=== PATIENT | female | born 1980 | race Caucasian/White ===

== ENCOUNTER 2018-12-03 22:11 | Observation (INO) | payer OTHER ==
[2018-12-03 22:44] VITALS: RESP 20
[2018-12-03 23:31] LABS: BASO % 0.4 % (0.0-2.0); EOS # 0.3 K/uL (0.0-0.7); EOS % 3.2 % (0.0-4.0); HEMOGLOBIN 12.7 g/dL (11.0-16.0); LYMPH # 3.5 K/uL (1.0-4.3); LYMPH % 35.6 % (20.0-40.0); MEAN CELL VOLUME 83.8 fL (81.0-99.0); MEAN CORPUSCULAR HEMOGLOBIN 28.8 pg (27.0-31.0); MEAN CORPUSCULAR HGB CONC 34.4 g/dL (33.0-37.0); MEAN PLATELET VOLUME 7.5 fL (7.2-11.7); MONO # 0.5 K/uL (0.0-0.8); MONO % 5.1 % (0.0-10.0); NEUT # 5.4 K/uL (1.8-7.0); NEUT % 55.7 % (50.0-75.0); NRBC % 0.1 % (0.0-2.0); RBC 4.42 Mil/uL (3.80-5.20); RED CELL DISTRIBUTION WIDTH 13.4 % (11.5-14.5); WHITE BLOOD COUNT 9.7 K/uL (4.8-10.8)
[2018-12-03 23:48] LABS: ALB/GLOB RATIO 1.3 (1.0-2.1); ALBUMIN 4.4 g/dL (3.5-5.0); ALT/SGPT 28 U/L (9-52); AST/SGOT 33 U/L (14-36); BLOOD UREA NITROGEN 12 mg/dL (7-17); CALCIUM 9.2 mg/dl (8.6-10.4); GFR NON-AFRICAN AMERICAN > 60
[2018-12-03 23:57] LABS: B-TYPE NATRIURETIC PEPTIDE 18.6 pg/mL (0-450)
--- NOTE | 2018-12-04 00:50 | C.PDOC ---
History Of Present Illness 38 year old female sent in by Dr. Colindres for SOB and abnormal EKG. Patient states she has SOB intermittently that does not change with exertion. She reports recently returning from [place] 2 months ago. Denies chest pain, cough, fever, or known sick contact. Time Seen by Provider: 12/03/18 22:50 Chief Complaint (Nursing): Shortness Of Breath History Per: Patient History/Exam Limitations: no limitations Onset/Duration Of Symptoms: Hrs Current Symptoms Are (Timing): Still Present Current Respiratory Medications: See Home Med List Associated Symptoms: denies: Fever, Chest Pain, Other (Cough) Recent travel outside of the [place]: No Past Medical History Reviewed: Historical Data, Nursing Documentation, Vital Signs Vital Signs: Last Vital Signs Temp 98.2 F 12/03/18 22:38 Pulse 90 12/03/18 22:38 Resp 20 12/03/18 22:38 BP 120/78 12/03/18 22:38 Pulse Ox 95 12/03/18 22:38 Family History: States: Unknown Family Hx - Social History Hx Alcohol Use: No Hx Substance Use: No - Immunization History Hx Tetanus Toxoid Vaccination: No Hx Influenza Vaccination: No Hx Pneumococcal Vaccination: No Review Of Systems Constitutional: Negative for: Fever, Chills Cardiovascular: Negative for: Chest Pain Respiratory: Positive for: Shortness of Breath. Negative for: Cough Gastrointestinal: Negative for: Nausea, Vomiting Neurological: Negative for: Weakness, Numbness Physical Exam - Physical Exam Appears: Non-toxic Skin: Normal Color, Warm Head: Atraumatic, Normacephalic Eye(s): bilateral: Normal Inspection Oral Mucosa: Moist Neck: Normal, Supple Chest: Symmetrical, No Tenderness Cardiovascular: Rhythm Regular Respiratory: Normal Breath Sounds, No Rales, No Rhonchi, No Wheezing Gastrointestinal/Abdominal: Soft, No Tenderness Neurological/Psych: Oriented x3, Normal Speech ED Course And Treatment - Laboratory Results Result Diagrams: 12/03/18 23:28 12/03/18 23:28 Lab Results: D-Dimer, Quantitative < 200 ng/mlDDU (0-243) 12/03/18 23:28 Troponin I < 0.0120 ng/mL (0.00-0.120) 12/03/18 23:28 NT-Pro-B Natriuret Pep 18.6 pg/mL (0-450) 12/03/18 23:28 Total Bilirubin 0.3 mg/dL (0.2-1.3) 12/03/18 23:28 AST 33 U/L (14-36) 12/03/18 23:28 ALT 28 U/L (9-52) 12/03/18 23:28 Alkaline Phosphatase 87 U/L (38-126) 12/03/18 23:28 Total Protein 7.7 g/dL (6.3-8.3) 12/03/18 23:28 Albumin 4.4 g/dL (3.5-5.0) 12/03/18 23:28 Globulin 3.3 gm/dL (2.2-3.9) 12/03/18 23:28 Albumin/Globulin Ratio 1.3 (1.0-2.1) 12/03/18 23:28 ECG: Interpreted By Me, Viewed By Me ECG Rhythm: Sinus Rhythm ECG Interpretation: Normal Interpretation Of ECG: Normal axis, t wave inversions in 2 3 and avf, questionable lvh by voltage criteria. Rate From EC O2 Sat by Pulse Oximetry: 95 (Room air) Progress Note: Spoke with Dr. Colindres who accepted patient to his service. Disposition - Disposition Disposition Time: 00:10 Condition: STABLE - Clinical Impression Clinical Impression: Chest pain, Dyspnea - Scribe Statement The provider has reviewed the documentation as recorded by the Scribirene Turner All medical record entries made by the Erinibe were at my direction and personally dictated by me. I have reviewed the chart and agree that the record accurately reflects my personal performance of the history, physical exam, medical decision making, and the department course for this patient. I have also personally directed, reviewed, and agree with the discharge instructions and disposition.
[2018-12-04 01:16] LABS: SQUAMOUS EPITHIAL 7 /hpf (0-5); URINE BACTERIA FEW (<OCC)
[2018-12-04 01:23] LABS: URINE BILIRUBIN NEGATIVE (NEGATIVE); URINE BLOOD TRACE-INTACT (NEGATIVE); URINE CLARITY Hazy (Clear); URINE COLOR YELLOW (YELLOW); URINE GLUCOSE (UA) NEGATIVE (Normal)
[2018-12-04 01:24] LABS: PH,URINE 7.5 (5.0-8.0); URINE LEUKOCYTE ESTERASE NEGATIVE Leu/uL (Negative); URINE PROTEIN NEGATIVE (NEGATIVE); URINE UROBILINOGEN 0.2 mg/dL (0.2-1.0)
--- NOTE | 2018-12-04 04:16 | CP.PCM.HP ---
Present on Admission - Present on Admission Any Indicators Present on Admission: No Past Patient History - Past Social History Smoking Status: Never Smoked - PSYCHIATRIC Hx Substance Use: No - SURGICAL HISTORY Hx Surgeries: No Meds Allergies/Adverse Reactions: Allergies Allergy/AdvReac Type Severity Reaction Status Date / Time No Known Allergies Allergy Unverified 12/03/18 22:43 Results - Vital Signs Recent Vital Signs: Last Vital Signs Temp 98.5 F 12/04/18 01:50 Pulse 86 12/04/18 02:15 Resp 20 12/04/18 01:50 BP 112/74 12/04/18 01:50 Pulse Ox 96 12/04/18 01:50 - Labs Result Diagrams: 12/03/18 23:28 12/03/18 23:28 Labs: Laboratory Results - last 24 hr 12/03/18 12/03/18 12/03/18 23:28 23:28 23:28 WBC 9.7 RBC 4.42 Hgb 12.7 Hct 37.0 MCV 83.8 MCH 28.8 MCHC 34.4 RDW 13.4 Plt Count 309 MPV 7.5 Neut % (Auto) 55.7 Lymph % (Auto) 35.6 [place] % (Auto) 5.1 Eos % (Auto) 3.2 Baso % (Auto) 0.4 Neut # (Auto) 5.4 Lymph # (Auto) 3.5 [place] # (Auto) 0.5 Eos # (Auto) 0.3 Baso # (Auto) 0.0 D-Dimer, Quantitative < 200 Sodium 137 Potassium 4.1 Chloride 97 L Carbon Dioxide 31 H Anion Gap 14 BUN 12 Creatinine 0.7 Est GFR ( Amer) > 60 Est GFR (Non-Af Amer) > 60 Random Glucose 141 H Calcium 9.2 Total Bilirubin 0.3 AST 33 ALT 28 Alkaline Phosphatase 87 Troponin I < 0.0120 NT-Pro-B Natriuret Pep 18.6 Total Protein 7.7 Albumin 4.4 Globulin 3.3 Albumin/Globulin Ratio 1.3 Urine Color Urine Clarity Urine pH Ur Specific [place] Urine Protein Urine Glucose (UA) Urine Ketones Urine Blood Urine Nitrate Urine Bilirubin Urine Urobilinogen Ur Leukocyte Esterase Urine WBC (Auto) Urine RBC (Auto) Ur Squamous Epith Cells Urine Bacteria 12/04/18 00:25 WBC RBC Hgb Hct MCV MCH MCHC RDW Plt Count MPV Neut % (Auto) Lymph % (Auto) [place] % (Auto) Eos % (Auto) Baso % (Auto) Neut # (Auto) Lymph # (Auto) [place] # (Auto) Eos # (Auto) Baso # (Auto) D-Dimer, Quantitative Sodium Potassium Chloride Carbon Dioxide Anion Gap BUN Creatinine Est GFR ( Amer) Est GFR (Non-Af Amer) Random Glucose Calcium Total Bilirubin AST ALT Alkaline Phosphatase Troponin I NT-Pro-B Natriuret Pep Total Protein Albumin Globulin Albumin/Globulin Ratio Urine Color Yellow Urine Clarity Hazy Urine pH 7.5 Ur Specific [place] 1.015 Urine Protein Negative Urine Glucose (UA) Negative Urine Ketones Negative Urine Blood Trace-intact Urine Nitrate Negative Urine Bilirubin Negative Urine Urobilinogen 0.2 Ur Leukocyte Esterase Negative Urine WBC (Auto) 3 Urine RBC (Auto) 2 Ur Squamous Epith Cells 7 H Urine Bacteria Few H
[2018-12-04 06:44] LABS: CK-MB < 0.22 ng/mL (0.0-3.38)
--- NOTE | 2018-12-04 07:58 | RAD ---
Date of service: 12/03/2018 PROCEDURE: CHEST RADIOGRAPH, 1 VIEW HISTORY: chest pain COMPARISON: None available. FINDINGS: LUNGS: Clear. Shallow lung volumes PLEURA: No pneumothorax or pleural fluid seen. CARDIOVASCULAR: No aortic atherosclerotic calcification present. Probable top-normal heart size Pulmonary vasculature prominence attributed to crowding low lung volumes. OSSEOUS STRUCTURES: No significant abnormalities. VISUALIZED UPPER ABDOMEN: Normal. OTHER FINDINGS: None. IMPRESSION: Limited exam given shallow inspiration body habitus and portable technique. No acute cardiopulmonary pathology believed present. Clinical correlation follow-up recommended
[2018-12-04 08:20] VITALS: BP 119/73; PULSE 95; TEMP 98.1
[2018-12-04 11:56] LABS: CK-MB < 0.22 ng/mL (0.0-3.38)
[2018-12-04 12:45] VITALS: O2SAT 97
--- NOTE | 2018-12-04 16:11 | CP.PCM.PN ---
Subjective - Date & Time of Evaluation Date of Evaluation: 12/04/18 Time of Evaluation: 16:08 - Subjective Subjective: House doctor note Patient has decided to leave against medical advice. Patient is competent and understands the risks of leaving, including permanent disability, worsening of symptoms and/or , and has had an opportunity to ask questions about her condition. Patient accepts all risk and liability. Paper work filed. Attending notified by RN. The patient has been informed that she may return for care at any time and to follow up with PMD urgently. Objective - Vital Signs/Intake and Output Vital Signs (last 24 hours): Temp Pulse Resp BP Pulse Ox 98.1 F 95 H 20 119/73 97 12/04/18 08:19 12/04/18 08:19 12/04/18 08:19 12/04/18 08:19 12/04/18 12:00 Intake and Output: 12/04/18 12/04/18 06:59 18:59 Intake Total 120 Balance 120 - Medications Medications: Current Medications Aspirin (Aspirin Chewable) 81 mg PO DAILY [facility] Last Admin: 12/04/18 09:42 Dose: 81 mg Heparin Sodium (Porcine) (Heparin) 5,000 units SC Q8 [facility] Last Admin: 12/04/18 14:09 Dose: 5,000 units Pneumococcal Polyvalent Vaccine (Pneumovax 23 Vaccine) 0.5 ml IM .ONCE ONE Stop: 12/06/18 11:01 Rosuvastatin Calcium (Crestor) 5 mg PO HS [facility] - Labs Labs: 12/03/18 23:28 12/03/18 23:28
--- NOTE | 2018-12-04 16:46 | HP ---
CHIEF COMPLAINT: Chest pain and shortness of breath. HISTORY OF PRESENT ILLNESS: This is a 38-year-old [place] female morbidly obese with history of prior chest pain and cardiac history. The patient is a nonsmoker, non-ETOH user. She denies any history of diabetes, hypertension, hyperlipidemia, came in because of left precordial chest pain, dyspnea on exertion, orthopnea, and PND. The patient had an EKG done in my office, which was grossly abnormal and the patient was hospitalized. The patient has been traveling overseas and she stayed there 2 months. She denies any history of cough or sore throat. She denies any history of dizziness or vertigo. She denies any history of nausea or vomiting. She denies any history of polyuria, polydipsia, polyphagia. She denies any relation of pain with food. She denies any relation of pain with deep inspiration. There is no history of trauma or fall. No joint pain or hip pain. She denies any tingling, numbness, or paresthesia. CURRENT MEDICATIONS: None. PAST MEDICAL HISTORY: Unknown cardiac history. SOCIAL HISTORY: Nonsmoker, non-ETOH user. PHYSICAL EXAMINATION: GENERAL: A young female in no distress. VITAL SIGNS: Blood pressure 112/74, pulse 84, respiratory rate 20, temperature 98.5. SKIN: No rashes, no bruising, no purpura, no petechia, no ecchymosis. HEENT: Atraumatic, normocephalic. Negative pallor. Negative jaundice. Extraocular movements are intact. NECK: Supple. No JVD, no lymph node, no thyromegaly, no carotid bruits. CHEST: Chest wall bilateral symmetrical expansion. LUNGS: Clear. CARDIOVASCULAR SYSTEM: S1, S2, regular. ABDOMEN: Soft, nontender. Bowel sounds are positive. RECTAL AND PELVIC: Negative. EXTREMITIES: No clubbing, cyanosis, or edema. CENTRAL NERVOUS SYSTEM: Awake, alert, oriented x3. ASSESSMENT: 1. Chest pain, abnormal EKG, rule out coronary ischemia, rule out conduction disturbances, rule out heart block. 2. Morbid obesity. PLAN: Admit. Details orders are written. Seen and examined. Glen Colindres MD
--- NOTE | 2018-12-04 22:39 | CP.PCM.DIS ---
Provider - Provider Date of Admission: 12/04/18 00:08 Attending physician: Glen Colindres MD Consults: 12/04/18 08:00 Cardiology Consult Routine Comment: CHEST PAIN Consulting Provider: Emile Lopes Consulting Physician: Emile Lopes Reason for Consult: CHEST PAIN /EKG CHANGES Time Spent in preparation of Discharge (in minutes): 30 Hospital Course - Lab Results Lab Results: Most Recent Lab Values WBC 9.7 K/uL (4.8-10.8) 12/03/18: RBC 4.42 Mil/uL (3.80-5.20) 12/03/18: Hgb 12.7 g/dL (11.0-16.0) 12/03/18: Hct 37.0 % (34.0-47.0) 12/03/18: MCV 83.8 fL (81.0-99.0) 12/03/18: MCH 28.8 pg (27.0-31.0) 12/03/18: MCHC 34.4 g/dL (33.0-37.0) 12/03/18: RDW 13.4 % (11.5-14.5) 12/03/18: Plt Count 309 K/uL (130-400) 12/03/18: MPV 7.5 fL (7.2-11.7) 12/03/18: Neut % (Auto) 55.7 % (50.0-75.0) 12/03/18: Lymph % (Auto) 35.6 % (20.0-40.0) 12/03/18: [place] % (Auto) 5.1 % (0.0-10.0) 12/03/18: Eos % (Auto) 3.2 % (0.0-4.0) 12/03/18: Baso % (Auto) 0.4 % (0.0-2.0) 12/03/18: Neut # (Auto) 5.4 K/uL (1.8-7.0) 12/03/18: Lymph # (Auto) 3.5 K/uL (1.0-4.3) 04/15/19 23:28 [place] # (Auto) 0.5 K/uL (0.0-0.8) 12/03/18 23:28 Eos # (Auto) 0.3 K/uL (0.0-0.7) 12/03/18 23:28 Baso # (Auto) 0.0 K/uL (0.0-0.2) 12/03/18 23:28 D-Dimer, Quantitative < 200 ng/mlDDU (0-243) 12/03/18 23:28 Sodium 137 mmol/L (132-148) 12/03/18 23:28 Potassium 4.1 mmol/L (3.6-5.2) 12/03/18 23:28 Chloride 97 mmol/L (98-107) L 12/03/18 23: Carbon Dioxide 31 mmol/L (22-30) H 12/03/18 23:28 Anion Gap 14 (10-20) 12/03/18 23:28 BUN 12 mg/dL (7-17) 12/03/18 23: Creatinine 0.7 mg/dL (0.7-1.2) 12/03/18 23:28 Est GFR ( Amer) > 60 12/03/18 23:28 Est GFR (Non-Af Amer) > 60 12/03/18 23:28 Random Glucose 141 mg/dL (65-105) H 12/03/18 23:28 Calcium 9.2 mg/dl (8.6-10.4) 12/03/18 23:28 Total Bilirubin 0.3 mg/dL (0.2-1.3) 12/03/18 23:28 AST 33 U/L (14-36) 12/03/18 23:28 ALT 28 U/L (9-52) 12/03/18 23:28 Alkaline Phosphatase 87 U/L (38-126) 12/03/18 23:28 Total Creatine Kinase < 20 U/L (30-135) L 12/04/18 11:25 CK-MB (Mass) < 0.22 ng/mL (0.0-3.38) 12/04/18 11:25 Troponin I < 0.0120 ng/mL (0.00-0.120) 12/04/18 11:25 NT-Pro-B Natriuret Pep 18.6 pg/mL (0-450) 12/03/18 23: Total Protein 7.7 g/dL (6.3-8.3) 12/03/18: Albumin 4.4 g/dL (3.5-5.0) 12/03/18: Globulin 3.3 gm/dL (2.2-3.9) 12/03/18: Albumin/Globulin Ratio 1.3 (1.0-2.1) 12/03/18: Urine Color Yellow (YELLOW) 12/04/18 00:25 Urine Clarity Hazy (Clear) 12/04/18 00:25 Urine pH 7.5 (5.0-8.0) 12/04/18 00:25 Ur Specific [place] 1.015 (1.003-1.030) 12/04/18 00:25 Urine Protein Negative mg/dL (NEGATIVE) 12/04/18 00:25 Urine Glucose (UA) Negative mg/dL (Normal) 12/04/18 00: Urine Ketones Negative mg/dL (NEGATIVE) 12/04/18 00:25 Urine Blood Trace-intact (NEGATIVE) 12/04/18 00:25 Urine Nitrate Negative (NEGATIVE) 12/04/18 00:25 Urine Bilirubin Negative (NEGATIVE) 12/04/18 00: Urine Urobilinogen 0.2 mg/dL (0.2-1.0) 12/04/18 00:25 Ur Leukocyte Esterase Negative Sue/uL (Negative) 12/04/18 00:25 Urine WBC (Auto) 3 /hpf (0-5) 12/04/18 00:25 Urine RBC (Auto) 2 /hpf (0-3) 12/04/18 00:25 Ur Squamous Epith Cells 7 /hpf (0-5) H 12/04/18 00:25 Urine Bacteria Few (<OCC) H 12/04/18 00:25 Discharge Plan - Follow Up Plan Condition: STABLE Disposition: AGAINST MEDICAL ADVICE
[2018-12-06] MEDS ORDERED: Pneumococcal 23-Valent Vaccine IM ONE (11:00)
--- NOTE | 2018-12-06 14:11 | CARD ---
APPROVED REPORT Date of service: 12/04/2018 EKG Measurement Heart [id number] <Conclusion> Normal sinus rhythm T wave abnormality, consider inferior ischemia Abnormal ECG
--- NOTE | 2018-12-06 23:40 | DS ---
DISCHARGE DIAGNOSES: 1. Noncoronary chest pain, abnormal EKG. 2. Morbid obesity. HISTORY OF PRESENT ILLNESS AND HOSPITAL COURSE: This is a 38-year-old [place] female with morbid obesity, came in because of chest pain, palpitation, and dizziness. She was admitted to the floor. Cardiac enzymes are negative. The patient needs more workup including cardiac catheterization, echocardiogram, and stress test. The patient refused all those tests and she signed out against medical advice. PHYSICAL EXAMINATION: VITAL SIGNS: Blood pressure 119/73, pulse 75, respiratory rate 20, and temperature 98.1. LUNGS: Clear. DISCHARGE CONDITION: Stable upon discharge. PLAN: Discharge the patient. Monitor the patient. Glen Colindres MD
== END 2018-12-04 16:15 | disposition left against medical advice (07) ==
LOC: C.ER 22:11 → C.6T 12-04 00:08
PROVIDERS: ADMIT Internal Medicine; ATTEND Internal Medicine
DX: R07.89 Other chest pain (principal); E66.01 Morbid (severe) obesity due to excess calories; Z68.42 Body mass index [BMI] 45.0-49.9, adult; R94.31 Abnormal electrocardiogram [ECG] [EKG]
CPT/HCPCS: 36415; 71045; 80053; 81001; 81025; 83880; 84484; 85025; 85378; 87086; 93005; 96372; 99285; G0378; J1644